=== PATIENT | male | born 1980 | race Caucasian/White ===

== ENCOUNTER 2016-11-11 22:55 | Emergency (ER) | payer BC ==
[~2016-11-11] VITALS: Ht 172.7 cm; Wt 80.6 kg
[~2016-11-11 22:55] MED LIST: SERT-234 PO; ZNTT/150 PO
[2016-11-11 23:10] VITALS: TEMP 37; Ht 172.7 cm; Wt 80.6 kg
[2016-11-11] MEDS ORDERED: GELATIN SPONGE 12-7MM ONE (23:19)
--- NOTE | 2016-11-11 23:36 | EMERGENCY ROOM VISIT NOTE ---
ED Visit Note First contact with patient: 23:10 CHIEF COMPLAINT: Finger laceration HISTORY OF PRESENT ILLNESS: This 36-year-old patient presents to the emergency department with after cutting the second finger tip avulsion affecting the nail. The bleeding has not stopped. Denies weakness or numbness of the finger. The patient has full range of motion of the fingers. The patient rates the pain as mild and 3/10. The patient denies any other injuries. The patient's tetanus shot is up to date. REVIEW OF SYSTEMS: A 6 system review of systems was completed with positives and pertinent negatives listed in the HPI. ALLERGIES: cat MEDICATIONS: Reviewed PMH: Medical Problems: (1) Appendectomy Status: Resolved (2) Asthma Status: Chronic (3) Gastroesophageal reflux disease Status: Chronic SOCIAL HISTORY: Tetanus is current, no drug use PHYSICAL EXAM: Vital Signs: Reviewed Nurse's notes, vital signs stable. GENERAL : Pleasant male, in no acute distress, well developed, well nourished. SKIN: There is a 1 cm distal skin avulsion clearing part of the nail to the left second finger. The edges do not gape apart with traction. There is no foreign material in the wound and it looks clean. There is bleeding. No deep structures such as tendons, bones, or significant blood vessels are seen in the base of the wound. Extension and flexion of the finger is full and strong. Full range of motion of the wrist and other fingers. Capillary refill less than 2 seconds. Normal sensation to light and sharp touch. EMERGENCY DEPARTMENT COURSE: I examined the patient. The area was cleansed and Gelfoam and bandage was placed . Hemostasis was achieved. He was washed with no rebleeding. He was counseled on proper care of the Gelfoam. The patient was discharged home in good condition. DIAGNOSIS: Fingertip avulsion including less than 1/5 of the nail to the left second finger DISCHARGE INSTRUCTIONS & TREATMENT: As below Problem List Medical Problems: (1) Appendectomy Status: Resolved (2) Asthma Status: Chronic (3) Gastroesophageal reflux disease Status: Chronic Current/Historical Medications Scheduled Ranitidine (Zantac), 150 MG PO DAILY Sertraline (Zoloft), 100 MG PO DAILY Allergies Coded Allergies: Cat Dander (Verified Allergy, Intermediate, WATERY EYES, 05/13/13) Vital Signs Date Time Temp Pulse Resp B/P Pulse Ox O2 Delivery O2 Flow Rate FiO2 1/30/17 23:10 37.0 95 20 152/88 94 Room Air Departure Information Impression Primary Impression: Fingertip avulsion Dispostion Home / Self-Care Condition GOOD Forms WORK / SCHOOL INSTRUCTIONS, HOME CARE DOCUMENTATION FORM, IMPORTANT VISIT INFORMATION Patient Instructions [facility], ED Avulsion Nail Partial, ED Avulsion Dermal Additional Instructions Leave the GELFOAM and dressing in place for the next 48 hours. Keep the dressing clean and dry until time for removal. To remove the GELFOAM dressing, remove the overlying tape and then soak the wound in warm water until the piece of GELFOAM can be easily removed. Then apply Antibiotic ointment and bandage to the areas until healed. Follow up with family doctor or return for any signs of infection (increasing redness, swelling, drainage, or fever). Keep covered when in sun until fully healed then SPF 50 or higher until scar healed.
[2016-11-11 23:45] VITALS: BP 136/77; PULSE 87; O2SAT 95
== END 2016-11-11 23:41 | disposition home or self-care (01) ==
LOC: C.EDB 22:56
DX: S61.301A Unspecified open wound of left index finger with damage to nail, initial encounter (principal); W45.8XXA Other foreign body or object entering through skin, initial encounter; J45.909 Unspecified asthma, uncomplicated; K21.9 Gastro-esophageal reflux disease without esophagitis; Z98.890 Other specified postprocedural states; Z79.899 Other long term (current) drug therapy; Z91.09 Other allergy status, other than to drugs and biological substances

== ENCOUNTER → 2017-08-29 | Outpatient (CLI) | payer BC ==
[2017-08-29 12:24] LABS: METHOD OF COLLECTION MASTURBATION; SEMEN TIME OF COLLECTION 905
[2017-08-29 12:25] LABS: DAYS OF ABSTINENCE 7; SEMEN COLOR YELLOW-GRAY (GRY/GRYWHTE); SPERM VIABILITY STAIN NOT INDICATED % (>58%); TYPE OF SPECIMEN CONTAINER STERILE CUP
== END | disposition home or self-care (01) ==
LOC: C.LAB 09:48
PROVIDERS: ATTEND Obstetrics & Gynecology
DX: Z31.41 Encounter for fertility testing (principal)